=== PATIENT | female | born 1970 | race Caucasian/White ===

== ENCOUNTER 2017-08-06 20:56 | Emergency (ER) | payer SELFPAY ==
[~2017-08-06] VITALS: Ht 162.6 cm; Wt 59.0 kg
[2017-08-06] MEDS ORDERED: IBUPROFEN 600MG TABLET PO ONE (22:15)
[2017-08-06] MEDS ORDERED: HYDROCODONE/ACETAMINOPHEN 5/325MG TABLET PO ONE (22:15)
[2017-08-06 23:12] LABS: HCG SCREEN NEGATIVE
[2017-08-07 00:38] VITALS: BP 127/83
== END 2017-08-07 00:39 | disposition home or self-care (01) ==
LOC: ER 22:13
DX: S09.8XXA Other specified injuries of head, initial encounter (principal); Z90.49 Acquired absence of other specified parts of digestive tract; Z98.890 Other specified postprocedural states; W01.0XXA Fall on same level from slipping, tripping and stumbling without subsequent striking against object, initial encounter; Y93.89 Activity, other specified; Y99.8 Other external cause status; Y92.090 Kitchen in other non-institutional residence as the place of occurrence of the external cause
CPT/HCPCS: 70450; 84703; 99285; Z7610

== ENCOUNTER 2021-05-07 13:14 | Emergency (ER) | payer MEDICAID ==
[~2021-05-07] VITALS: Ht 152.4 cm; Wt 68.0 kg
[2021-05-07 13:25] VITALS: BP 154/93
== END 2021-05-07 21:18 | disposition left against medical advice (07) ==
LOC: ER 13:14
DX: Z53.21 Procedure and treatment not carried out due to patient leaving prior to being seen by health care provider (principal)